=== PATIENT | male | born 1965 | race African-American/Black ===

== ENCOUNTER 2018-08-06 12:21 | Emergency (ER) | payer OTHER ==
[~2018-08-06] VITALS: Ht 182.9 cm; Wt 94.3 kg
[2018-08-06 12:36] VITALS: Ht 182.9 cm; Wt 94.3 kg
[2018-08-06 13:50] VITALS: BP 152/92
== END 2018-08-06 13:50 | disposition home or self-care (01) ==
LOC: ED 12:21
DX: M25.562 Pain in left knee (principal)
CPT/HCPCS: Q0092

== ENCOUNTER 2018-11-05 08:27 | Emergency (ER) | payer MEDICAID ==
[~2018-11-05] VITALS: Ht 182.9 cm; Wt 81.6 kg
[2018-11-05 08:43] VITALS: BP 119/82; Ht 182.9 cm; Wt 81.6 kg
== END 2018-11-05 10:21 | disposition home or self-care (01) ==
LOC: ED 08:27
DX: S39.012A Strain of muscle, fascia and tendon of lower back, initial encounter (principal); F17.210 Nicotine dependence, cigarettes, uncomplicated; X58.XXXA Exposure to other specified factors, initial encounter; Y93.89 Activity, other specified; Y92.89 Other specified places as the place of occurrence of the external cause; Y99.8 Other external cause status
CPT/HCPCS: J1885